=== PATIENT | male | born 1975 | race Caucasian/White ===

== ENCOUNTER 2016-09-25 00:58 | Emergency (ER) | payer SELFPAY ==
[~2016-09-25] VITALS: Ht 170.2 cm; Wt 81.0 kg
[2016-09-25 01:04] VITALS: Ht 170.2 cm; Wt 81.0 kg
== END 2016-09-25 05:57 | disposition left against medical advice (07) ==
LOC: FTE 00:58
DX: Z53.21 Procedure and treatment not carried out due to patient leaving prior to being seen by health care provider (principal)